=== PATIENT | female | born 1945 | race Caucasian/White ===

== ENCOUNTER → 2018-04-20 | Day surgery (SDC) | payer OTHER ==
[~2018-04-20] MED LIST: ATORVASTATIN CA10 MG PO; FUROSEMIDE20 MG PO; GLIMEPIRIDE1 MG; GLIPIZIDE10 MG PO; HIPREX1 GM PO; ISORBIDE PO; KIONEX15 GM/60 M PO; LATANOPROST2.5 ML OP; LISINOPRIL20 MG PO; METFORMIN HYDRO25 GM MC; NITROSTAT0.3 MG SL; URETRON D-S TAB1 TAB PO; [UNRECOGNIZED DRUG - OTHER] PO
== END | disposition home or self-care (01) ==
LOC: ADM 04-11 10:00 → CIR.AMB 04-13 10:00
DX: N13.1 Hydronephrosis with ureteral stricture, not elsewhere classified (principal)

== ENCOUNTER 2018-12-28 06:41 | Day surgery (SDC) | payer OTHER | END 2018-12-28 14:55 | disposition home or self-care (01) | LOC: CIR.AMB 06:41 | DX: N13.1 Hydronephrosis with ureteral stricture, not elsewhere classified (principal) ==